=== PATIENT | female | born 1995 ===

== ENCOUNTER 2022-05-15 14:26 | Outpatient (CLI) | payer OTHER | END 2022-05-15 16:15 | disposition home or self-care (01) | LOC: PRENATAL 14:26 | PROVIDERS: ATTEND Obstetrics & Gynecology Maternal & Fetal Medicine | DX: O35.9XX0 Maternal care for (suspected) fetal abnormality and damage, unspecified, not applicable or unspecified (principal); O35.3XX0 Maternal care for (suspected) damage to fetus from viral disease in mother, not applicable or unspecified; O10.019 Pre-existing essential hypertension complicating pregnancy, unspecified trimester; Z3A.20 20 weeks gestation of pregnancy ==

== ENCOUNTER 2022-07-18 12:14 | Outpatient (CLI) | payer OTHER ==
[~2022-07-18 12:14] MED LIST: LABETALOL HCL100 MG PO
== END 2022-07-18 13:14 | disposition home or self-care (01) ==
LOC: PRENATAL 12:14
PROVIDERS: ATTEND Obstetrics & Gynecology Maternal & Fetal Medicine
DX: O26.849 Uterine size-date discrepancy, unspecified trimester (principal); O10.019 Pre-existing essential hypertension complicating pregnancy, unspecified trimester; Z3A.29 29 weeks gestation of pregnancy

== ENCOUNTER 2022-08-21 12:38 | Outpatient (CLI) | payer OTHER | END 2022-08-21 13:11 | disposition home or self-care (01) | LOC: PRENATAL 12:38 | PROVIDERS: ATTEND Obstetrics & Gynecology Maternal & Fetal Medicine | DX: O26.849 Uterine size-date discrepancy, unspecified trimester (principal); O35.9XX0 Maternal care for (suspected) fetal abnormality and damage, unspecified, not applicable or unspecified; Z3A.24 24 weeks gestation of pregnancy ==